=== PATIENT | male | born 1935 ===

== ENCOUNTER → 2023-10-10 10:50 | Outpatient (CLI) | payer OTHER ==
[2023-10-10 12:39] LABS: ALBUMIN 3.8 gm/dL (3.4-5.0); CALCIUM 8.9 mg/dL (8.5-10.1); CREATININE SERUM 1.16 mg/dL (0.70-1.30); GFR 59.42; PHOSPHOROUS 3.7 mg/dL (2.5-4.9); POTASSIUM 3.72 mEq/L (3.5-5.1)
== END | disposition home or self-care (01) ==
LOC: LAB 10:50
PROVIDERS: ATTEND Otolaryngology Otolaryngology/Facial Plastic Surgery
DX: J38.4 Edema of larynx (principal); R13.10 Dysphagia, unspecified

== ENCOUNTER 2023-10-14 10:01 | Outpatient (CLI) | payer OTHER | END 2023-10-14 10:07 | disposition home or self-care (01) | LOC: RAD 10:01 | PROVIDERS: ATTEND Otolaryngology Otolaryngology/Facial Plastic Surgery | DX: J38.4 Edema of larynx (principal); R13.10 Dysphagia, unspecified ==

== ENCOUNTER 2023-10-17 08:19 | Outpatient (CLI) | payer OTHER | END 2023-10-17 08:33 | disposition home or self-care (01) | LOC: TOM 08:19 | DX: J38.4 Edema of larynx (principal); R13.10 Dysphagia, unspecified | CPT/HCPCS: 70492; Q9965 ==